=== PATIENT | female | born 1985 | race African-American/Black ===

== ENCOUNTER 2025-04-21 05:06 | Emergency (ER) | payer SELFPAY ==
[~2025-04-21] VITALS: Ht 152.4 cm; Wt 86.0 kg
[2025-04-21 05:10] VITALS: O2SAT 99
[2025-04-21] MEDS ORDERED: LIDOCAINE HCL 1% 20ML VIAL INFIL ONE (05:45)
[2025-04-21] MEDS: ACETAMINOPHEN 325MG TABLET PO ONE (06:12)
[2025-04-21] MEDS: TETANUS, DIPHTHERIA, PERTUSSIS VAC/PF 0.5ML (>10YR OLD) IM ONE (06:13)
[2025-04-21 07:48] VITALS: BP 126/85; PULSE 98; RESP 18; TEMP 36.8; O2SAT 99
== END 2025-04-21 08:13 | disposition home or self-care (01) ==
LOC: ER 05:06
DX: S01.81XA Laceration without foreign body of other part of head, initial encounter (principal); Z88.2 Allergy status to sulfonamides; W18.2XXA Fall in (into) shower or empty bathtub, initial encounter; Y93.E1 Activity, personal bathing and showering; Y92.89 Other specified places as the place of occurrence of the external cause; Y99.8 Other external cause status
CPT/HCPCS: 70450; 70486; 90715; 12013; 90471; 99285; J2003; Z7610 ×2

== ENCOUNTER 2025-04-29 09:03 | Emergency (ER) | payer SELFPAY ==
[~2025-04-29] VITALS: Ht 152.4 cm; Wt 91.0 kg
[2025-04-29 09:17] VITALS: TEMP 36.8; O2SAT 98
[2025-04-29 10:59] VITALS: BP 132/89; PULSE 77; RESP 16; O2SAT 100
== END 2025-04-29 11:04 | disposition home or self-care (01) ==
LOC: ER 09:03
DX: S01.81XD Laceration without foreign body of other part of head, subsequent encounter (principal); Z88.2 Allergy status to sulfonamides; X58.XXXD Exposure to other specified factors, subsequent encounter
CPT/HCPCS: 99282; Z7610 ×2; A4606